=== PATIENT | male | born 1955 | race Caucasian/White ===

== ENCOUNTER → 2017-06-04 | Day surgery (SDC) | payer OTHER ==
[~2017-06-04] MED LIST: Lactated Ringers 500 ML IV SCH; Propofol 200 MG/20 ML SDV IV ONE
--- NOTE | 2017-06-04 22:04 | OR ---
DATE OF OPERATION: 06/04/2017 PREOPERATIVE DIAGNOSIS: 1. FAMILY HISTORY OF COLON CANCER. 2. HISTORY OF POLYPS. POSTOPERATIVE DIAGNOSIS: 1. FAMILY HISTORY OF COLON CANCER. 2. HISTORY OF POLYPS. SURGEON: Valentino Carpio MD PROCEDURE: FULL-LENGTH COLONOSCOPY WITH POLYP REMOVAL X1. ANESTHESIA: AUTO TUNE UP MECHANIC. COMPLICATIONS: None. SPECIMEN: Small hyperplastic polyp, sigmoid colon. FINDINGS: 1. Full-length colonoscopy. 2. Mild sigmoid diverticulosis. 3. Hyperplastic polyp, sigmoid colon. RECOMMENDATIONS: Follow up colonoscopy every 5 years. INDICATIONS: The patient has a family history of colon cancer. It has been many years since his last colonoscopy and he does have a history of polyp removal. DESCRIPTION OF PROCEDURE: The patient was prepped and draped, placed in the left lateral decubitus position. A lubricated Olympus colonoscope was inserted and easily advanced to the cecum. Direct visualization of the ileocecal valve and appendiceal orifice was accomplished. Bowel prep was adequate. Upon withdrawal of the scope, the cecum and ascending colon appeared benign as did the transverse colon. On the left side of the colon, the patient had no signs of any vascular abnormality, bleeding sites or colitis. He did have some scattered diverticula in the sigmoid area very mild in severity. Went to the rectosigmoid junction, there was one small hyperplastic appearing polyp, flat along the haustral fold in the mid sigmoid area. We removed the majority of this with the cold forceps with 3 separate biopsies. Resolution of bleeding was spontaneous. The rest of the colon appeared unremarkable. Retroflexion of scope in the rectum showed no anal lesions. Air was suctioned. Scope was removed without complication. PATRICIA/ABY /[id number]
== END ==
LOC: CC.SDS 12:34
PROVIDERS: ATTEND Family Medicine
DX: Z12.11 Encounter for screening for malignant neoplasm of colon (principal); D12.5 Benign neoplasm of sigmoid colon; K57.30 Diverticulosis of large intestine without perforation or abscess without bleeding; Z86.010 Personal history of colon polyps; Z80.0 Family history of malignant neoplasm of digestive organs
CPT/HCPCS: 45380; J2704; J7120; 00810

== ENCOUNTER 2020-02-24 15:19 | Emergency (ER) | payer OTHER ==
[2020-02-24] MEDS ORDERED: Gentamicin 0.3% Ophth Soln 5 ML Bottle EYEBOTH ONE (15:20)
[2020-02-24] MEDS ORDERED: Polyvinyl Alcohol 1.4% Ophth Soln 15 ML Bottle EYEBOTH ONE (15:20)
[2020-02-24] MEDS ORDERED: Tetracaine HCl/PF 0.5% 4 ML Bottle EYEBOTH ONE (15:20)
[2020-02-24] MEDS ORDERED: Distilled Water Ophth Irrig Soln 120 ML Bottle EYEBOTH ONE (15:20)
--- NOTE | 2020-02-24 15:31 | EDM.PDOC ---
ED HPI GENERAL MEDICAL PROBLEM - General Chief Complaint: Eye Problems Stated Complaint: Something in R eye Time Seen by Provider: 02/24/20 15:27 Source of Information: Reports: Patient History Limitations: Reports: No Limitations - History of Present Illness INITIAL COMMENTS - FREE TEXT/NARRATIVE: This patient is a 64 year old male that presents to the ER. Patient reports that he was outside mowing grass when he feels like he got something in his eye. He reports flushing it out, felt like it was gone, then went back to mowing. But, it continues to be painful, watery. He reports putting a cold wash cloth on it. Patient denies loss of vision, loss of vision peripherally, floaters, flashes of light. Onset: Today Onset Date: 02/24/20 Duration: Hour(s): (2) Quality: Reports: Ache Severity: Moderate Improves with: Reports: None Worsens with: Reports: None Associated Symptoms: Reports: Headaches. Denies: Confusion, Chest Pain, Cough, cough w sputum, Diaphoresis, Fever/Chills, Loss of Appetite, Malaise, Nausea/Vomiting, Rash, Seizure, Shortness of Breath, Syncope, Weakness Right Eye Pain Score (Numeric/FACES): 8 - Related Data Allergies Allergy/AdvReac Type Severity Reaction Status Date / Time No Known Allergies Allergy Verified 02/24/20 15:22 Home Meds: Home Meds Clindamycin Phosphate 1 dose TOP BID 12/21/18 [History] Budesonide/Formoterol [Symbicort 160-4.5 MCG] 2 puff INH BID 02/24/20 [History] Tiotropium [place] [Spiriva Respimat] 2 puff INH DAILY 02/24/20 [History] ED ROS GENERAL - Review of Systems Review Of Systems: See Below Constitutional: Reports: No Symptoms HEENT: Reports: Eye Discharge (right watery), Eye Pain (right, FB sensation). Denies: Contact Lenses Respiratory: Reports: No Symptoms Cardiovascular: Reports: No Symptoms Endocrine: Reports: No Symptoms GI/Abdominal: Reports: No Symptoms : Reports: No Symptoms Musculoskeletal: Reports: No Symptoms Skin: Reports: No Symptoms Neurological: Reports: Headache. Denies: Confusion, Dizziness, Seizure, Syncope, Trouble Speaking, Change in Speech ED EXAM GENERAL W FULL EYE - Physical Exam Exam: See Below Exam Limited By: No Limitations General Appearance: Alert, WD/WN, No Apparent Distress Eye Exam: Right Eye: Other (watery, redness.), Bilateral Eye: EOMI, PERRL With Correction: No Eyelids: Bilateral: Normal Appearance Conjunctiva & Sclera: Right: Other (injected conjucta) Cornea Exam: Right: Corneal Abrasion, Examined with Flourescein Extraocular Movements: Bilateral: Intact Pupils: Normal Accommodation Pupillary Size: Bilateral: 4 mm Pupillary Reaction: Bilateral: Brisk Anterior Chamber: Bilateral: Normal Appearance Posterior Chamber: Right: Normal Funduscopic (other than small abrasion possible corneal) Ears: Normal External Exam, Normal Canal, Hearing Grossly Normal, Normal TMs Nose: Normal Inspection, Normal Mucosa, No Blood Throat/Mouth: Normal Inspection, Normal Lips, Normal Teeth, Normal Gums, Normal Oropharynx, Normal Voice, No Airway Compromise Head: Atraumatic, Normocephalic Neck: Normal Inspection, Supple, Non-Tender, Full Range of Motion Respiratory/Chest: No Respiratory Distress, Lungs Clear, Normal Breath Sounds, No Accessory Muscle Use Cardiovascular: Normal Peripheral Pulses, Regular Rate, Rhythm Neurological: Alert, Oriented, Normal Cognition, Normal Gait, No Motor/Sensory Deficits Psychiatric: Normal Affect, Normal Mood Skin Exam: Warm, Dry, Intact, Normal Color, No Rash Lymphatic: No Adenopathy ED EYE w/ Add Procedure - Eye Procedure Alcaine Drops Administered: Yes (2gtts right eye) Eye Irrigated w/ Saline (ccs): 100 Antibiotic Oinment/Drps Admin: Right Eye Progress: patient reports eye feels much better. All vision intact. Course - Vital Signs Last Recorded V/S: Last Vital Signs Temp 99.1 F 02/24/20 15:21 Pulse 96 02/24/20 15:21 Resp 16 02/24/20 15:21 BP 135/82 02/24/20 15:21 Pulse Ox 96 02/24/20 15:21 - Orders/Labs/Meds Orders: Active Orders 24 hr Category Date Time Status Visual Acuity [Vision Test] [RC] ASDIRECTED Care 02/24/20 15:27 Active Meds: Medications Discontinued Medications Generic Name Dose Route Start Last Admin Trade Name Freq PRN Reason Stop Dose Admin Artificial Tears 1 ml 02/24/20 15:35 02/24/20 15:41 Liquitears 1.4% Ophth Soln EYERT 02/24/20 15:36 1 drop ONETIME ONE Administration Tetracaine HCl 1 ml 02/24/20 15:34 02/24/20 15:41 Tetracaine 0.5% Steri-Unit Leeann EYERT 02/24/20 15:35 1 drop ASDIRECTED ONE Administration Tobramycin 1 ml 02/24/20 16:04 Tobramycin 0.3% Ophth Soln EYERT 02/24/20 16:05 Q4H STA Water 15 ml 02/24/20 15:58 02/24/20 15:59 Eye Wash Irrigation Soln EYERT 02/24/20 15:59 15 ml ONETIME ONE Administration Departure - Departure Time of Disposition: 16:01 Disposition: Home, Self-Care 01 Condition: Good Clinical Impression: Corneal abrasion Qualifiers: Encounter type: initial encounter Laterality: right Qualified Code(s): S05.01XA - Injury of conjunctiva and corneal abrasion without foreign body, right eye, initial encounter - Discharge Information *PRESCRIPTION DRUG MONITORING PROGRAM REVIEWED*: Not Applicable *COPY OF PRESCRIPTION DRUG MONITORING REPORT IN PATIENT ANDRE: Not Applicable Instructions: Corneal Abrasion, [id number] Referrals: Valentino Carpio MD [Primary Care Provider] - Forms: ED Department Discharge Additional Instructions: Followup with export freight specialist Wednesday morning Return to the ER for for worsening of condition or any emergent concerns Gentamicin Leeann 0.3% 2 drops in right eye every 4 hours while awake #1 bottle no refill: until seen by export freight specialist: Take Home Sepsis Event Note (ED) - Evaluation Sepsis Screening Result: No Definite Risk - Focused Exam Vital Signs: Vital Signs Temp Pulse Resp BP Pulse Ox 02/24/20 15:21 99.1 F 96 16 135/82 96 - My Orders Last 24 Hours: My Active Orders 02/24/20 15:27 Visual Acuity [Vision Test] [RC] ASDIRECTED - Assessment/Plan Last 24 Hours: My Active Orders 02/24/20 15:27 Visual Acuity [Vision Test] [RC] ASDIRECTED Plan: PLEASE SEE RN NOTE FOR PFSH
[2020-02-24] MEDS: Polyvinyl Alcohol 1.4% Ophth Soln 15 ML Bottle EYERT ONE (15:41)
[2020-02-24] MEDS: Tetracaine HCl/PF 0.5% 4 ML Bottle EYERT ONE (15:41)
[2020-02-24] MEDS: Distilled Water Ophth Irrig Soln 120 ML Bottle EYERT ONE (15:59)
[2020-02-24] MEDS: Gentamicin 0.3% Ophth Soln 5 ML Bottle EYERT SCH (16:10)
[2020-02-24] MEDS: Tobramycin 0.3% Ophth Drops 5 ML Bottle EYERT STA (16:10)
== END 2020-02-24 16:14 | disposition home or self-care (01) ==
LOC: CC.ED 15:19
DX: S05.01XA Injury of conjunctiva and corneal abrasion without foreign body, right eye, initial encounter (principal); X58.XXXA Exposure to other specified factors, initial encounter
CPT/HCPCS: 99283; A9270

== ENCOUNTER → 2022-05-22 | Day surgery (SDC) | payer MEDICARE, OTHER ==
[~2022-05-22] MED LIST changes: +Lactated Ringers 1,000 ML IV SCH; -Lactated Ringers 500 ML IV SCH; -Propofol 200 MG/20 ML SDV IV ONE; +Propofol 200 MG/20 ML SDV ONE; +fentaNYL 50 MCG/ML SDV ONE
== END ==
LOC: CC.SDS 06:54
PROVIDERS: ATTEND Family Medicine
DX: Z12.11 Encounter for screening for malignant neoplasm of colon (principal); K57.30 Diverticulosis of large intestine without perforation or abscess without bleeding; J44.9 Chronic obstructive pulmonary disease, unspecified; Z86.010 Personal history of colon polyps; Z80.0 Family history of malignant neoplasm of digestive organs; Z79.899 Other long term (current) drug therapy; Z87.891 Personal history of nicotine dependence; Z98.890 Other specified postprocedural states
CPT/HCPCS: 00812; G0105; J2704; J3010; J7120

== ENCOUNTER 2024-08-23 08:42 | Emergency (ER) | payer MEDICARE, OTHER ==
[2024-08-23] MEDS ORDERED: Oxymetazoline 0.05% Nasal Spray 30 ML Bottle NAS ONE ×2 (09:07→17:12)
[2024-08-23] MEDS: Tranexamic Acid 1,000 MG/10 ML Vial TOP ONE ×2 (09:30→15:38)
== END 2024-08-23 11:40 | disposition home or self-care (01) ==
LOC: CC.ED 08:42
DX: R04.0 Epistaxis (principal); Z79.899 Other long term (current) drug therapy
CPT/HCPCS: 30901; 99283-25